=== PATIENT | female | born 1990 | race Two or more races ===

== ENCOUNTER 2018-06-13 09:08 | Emergency (ER) | payer OTHER ==
[~2018-06-13] VITALS: Ht 160 cm; Wt 65.9 kg
[2018-06-13 10:08] LABS: MICROSCOPIC NOT IND
[2018-06-13 10:11] LABS: CULTURE INDICATED? NO
[2018-06-13 11:28] VITALS: BP 125/66
== END 2018-06-13 11:51 ==
LOC: ED 11:45
DX: O20.9 Hemorrhage in early pregnancy, unspecified (principal); Z3A.01 Less than 8 weeks gestation of pregnancy; Z32.01 Encounter for pregnancy test, result positive
CPT/HCPCS: 36415; 76801; 81003; 84702; 99284